=== PATIENT | male | born 1995 | race Caucasian/White ===

== ENCOUNTER 2018-01-26 08:27 | Day surgery (SDC) | payer BC ==
[~2018-01-26 08:27] MED LIST: LIDOCAINE HCL 1% MPF 30 SOL ONE; PROPOFOL 500 MG/50 ML EMU IV ONE
[2018-01-26] MEDS ORDERED: PROPOFOL 500 MG/50 ML EMU IV ONE (10:22)
[2018-01-26 11:36] LABS: PATHOLOGY SPEC OR BIOPSY REFER MAYO/MKTO PATH
[2018-01-26 11:46] VITALS: TEMP 97.8
[2018-01-26 11:56] VITALS: BP 127/86; PULSE 71; RESP 20; O2SAT 100
== END 2018-01-26 12:14 | disposition home or self-care (01) ==
LOC: SURG 08:27
PROVIDERS: ATTEND Internal Medicine Gastroenterology
DX: R10.10 Upper abdominal pain, unspecified (principal); R19.7 Diarrhea, unspecified; L53.8 Other specified erythematous conditions; K64.8 Other hemorrhoids; Q39.9 Congenital malformation of esophagus, unspecified; K44.9 Diaphragmatic hernia without obstruction or gangrene; K29.70 Gastritis, unspecified, without bleeding
CPT/HCPCS: 99001; J2001; J2704